=== PATIENT | female | born 1945 | race African-American/Black ===

== ENCOUNTER 2018-06-25 20:02 | Inpatient (IN) | payer MEDICARE ==
[~2018-06-25] VITALS: Ht 152.4 cm; Wt 77.1 kg
[2018-06-25] MEDS ORDERED: ALBUTEROL SULF 0.083% NEB SOLN 3 ML NEB NEB STA (20:14)
[2018-06-25] MEDS ORDERED: ASPIRIN 81 MG CHEW TAB PO ONE ×2 (20:15→23:45)
[2018-06-25] MEDS ORDERED: IPRATROPIUM BROMIDE 0.02% 2.5 ML NEB NEB ONE (20:15)
[2018-06-25] MEDS ORDERED: IPRATROPIUM BROMIDE 0.02% 2.5 ML NEB ONE (20:18)
[2018-06-25] MEDS ORDERED: ALBUTEROL SULF 0.083% NEB SOLN 3 ML NEB ONE (20:18)
[2018-06-25 20:24] LABS: BASOPHILS # (AUTO) 0.1 (0.0-0.1); BASOPHILS % 0.4 % (0.0-1.0); EOSINOPHILS # (AUTO) 0.1 (0.0-0.4); EOSINOPHILS % 0.3 % (0.0-6.0); HEMATOCRIT 34.2 % (34.2-44.1); HEMOGLOBIN 10.4 g/dL (12.0-16.0); LYMPHOCYTES # (AUTO) 0.5 (1.0-3.2); LYMPHOCYTES % 3.2 % (18.0-39.1); MEAN CORPUSCULAR HEMOGLOBIN 28.5 pg (28-32); MEAN CORPUSCULAR HGB CONC 30.4 g/dL (31-35); MEAN CORPUSCULAR VOLUME 93.7 fL (81-99); MONOCYTES # (AUTO) 1.2 (0.2-0.8); NEUTROPHILS # (AUTO) 14.8 (2.1-6.9); NEUTROPHILS % 88.1 % (38.7-80.0); PLATELET COUNT 246 x10e3/uL (140-360); RED BLOOD COUNT 3.65 x10e6/uL (3.6-5.1); RED CELL DISTRIBUTION WIDTH 12.9 % (11.7-14.4)
[2018-06-25] MEDS ORDERED: BUDESONIDE0.5 MG/2 M NEB (20:30)
[2018-06-25] MEDS ORDERED: CHLORHEXIDINE118 ML PO (20:30)
[2018-06-25] MEDS ORDERED: FENTANYL1 EAC1 TOP (20:30)
[2018-06-25] MEDS ORDERED: ENOXAPARIN40 MG/0.4 SC (20:30)
[2018-06-25] MEDS ORDERED: CLONAZEPAM0.5 MG PEG (20:30)
[2018-06-25] MEDS ORDERED: ACETAMINOPHEN325 M1 PEG (20:30)
[2018-06-25] MEDS ORDERED: DICYCLOMINE HCL20 MG PEG (20:30)
[2018-06-25] MEDS ORDERED: IBUPROFEN200 MG PEG (20:30)
[2018-06-25] MEDS: IPRATROPIUM BROMIDE 0.02% 2.5 ML NEB NEB SCH (20:30)
[2018-06-25] MEDS ORDERED: EFFER-K 10 MEQ10 MEQ PEG (20:30)
[2018-06-25] MEDS ORDERED: METHOCARBAMOL PEG (20:35)
[2018-06-25] MEDS ORDERED: PEPCID20 MG PEG (20:35)
[2018-06-25] MEDS ORDERED: LEVOTHYROXINE50 MCG PEG (20:35)
[2018-06-25] MEDS ORDERED: [UNRECOGNIZED DRUG - OTHER] OU (20:35)
[2018-06-25] MEDS ORDERED: NORCO 5-325 TA1 EACH PO (20:35)
[2018-06-25] MEDS ORDERED: ZOLOFT50 MG PEG (20:35)
[2018-06-25] MEDS ORDERED: ALBUTEROL NEB (20:36)
[2018-06-25] MEDS ORDERED: IPRATROPIUM NEB (20:36)
[2018-06-25 20:45] LABS: ALANINE AMINOTRANSFERASE 16 IU/L (0-55); ALBUMIN 3.3 g/dL (3.5-5.0); ALBUMIN/GLOBULIN RATIO 0.6 (0.8-2.0); ALKALINE PHOSPHATASE 67 IU/L (40-150); ANION GAP 15.6 mmol/L (8-16); BLOOD UREA NITROGEN 18 mg/dL (7-26); BUN/CREATININE RATIO 33 (6-25); CALCIUM 10.4 mg/dL (8.4-10.2); CARBON DIOXIDE 37 mmol/L (22-29); CHLORIDE 86 mmol/L (98-107); CREATINE KINASE 56 IU/L (29-168); CREATININE, SERUM 0.54 mg/dL (0.57-1.11); EST GLOMERULAR FILTRATION RATE > 60 ML/MIN (60-); GLUCOSE 233 mg/dL (74-118); POTASSIUM 4.6 mmol/L (3.5-5.1); SODIUM 134 mmol/L (136-145)
--- NOTE | 2018-06-25 20:45 | NUR ---
ABG OBTAINED AT BEDSIDE PER MD ORDERS, PT TOLERATED WELL
--- NOTE | 2018-06-25 20:56 | Diagnostic Imaging Report ---
EXAMINATION: CHEST SINGLE (PORTABLE) INDICATION: ^respiratory distress COMPARISON: None FINDINGS: AP view TUBES and LINES: The endotracheal tube is roughly 3 cm above the andree. LUNGS: Lungs are not well inflated. Complete opacification of bilateral lungs. PLEURA: No pleural effusion or pneumothorax. HEART AND MEDIASTINUM: The cardiomediastinal silhouette is unremarkable but partially obscured. BONES AND SOFT TISSUES: Severe deformity of the ribs and severe scoliotic changes. No acute osseous lesion. Soft tissues are unremarkable. UPPER ABDOMEN: No free air under the diaphragm. IMPRESSION: 1. Endotracheal tube roughly 3 cm above the andree. However, the andree is not well visualized. 2. Hypoinflated lungs with near complete opacification bilaterally. This likely represents severe pulmonary edema. Signed by: Dr. Josiah Singleton M.D. on 06/25/2018 8:53 PM
[2018-06-25 21:00] LABS: B-TYPE NATRIURETIC PEPTIDE2 74.2 pg/mL (0-100)
--- NOTE | 2018-06-25 21:13 | NUR ---
straight cath performed per orders. sterile technique maintained. 175cc clear yellow urine drained. specimen collected and sent to lab. glen care performed. pt noted c soft bm at this time. pt cleaned c diaper changed.
[2018-06-25 21:39] LABS: ABG HCO3 43 mmol/L (23-28); ABG PCO2 68 mmHg (41-51); ABG PO2 69 mmHg (80-105)
[2018-06-25 21:59] LABS: CLARITY,URINE CLEAR (CLEAR); COLOR,URINE YELLOW (YELLOW)
[2018-06-25 22:00] LABS: BILIRUBIN,URINE NEGATIVE (NEGATIVE); KETONES,URINE NEGATIVE (NEGATIVE); LEUKOCYTE ESTERASE ,URINE TRACE (NEGATIVE); NITRITE,URINE NEGATIVE (NEGATIVE); PROTEIN,URINE DIPSTICK NEGATIVE (NEGATIVE); URINE UROBILINOGEN 0.2 mg/dL (0.2 - 1)
[2018-06-25 22:22] LABS: BACTERIA,URINE FEW /HPF; EPITHELIAL CELLS,URINE FEW /LPF; RBC,URINE 0-5 /HPF (0-5); WBC,URINE (MAN) 0-5 /HPF (0-5)
--- NOTE | 2018-06-25 22:29 | Diagnostic Imaging Report ---
EXAM: CT Chest, Abdomen and Pelvis without contrast INDICATION: Shortness of breath. Sepsis. COMPARISON: None. TECHNIQUE: Chest, abdomen and pelvis were scanned utilizing a multidetector helical scanner from the lung apex to the pubic symphysis without administration of IV contrast coronal and sagittal reformations were obtained. Routine protocol was performed. Scan was performed when during portal venous phase. IV CONTRAST: None. ORAL CONTRAST: Water RADIATION DOSE: Total DLP: 924.14 mGy*cm Estimated effective dose: (DLP x 0.015 x size factor) mSv COMPLICATIONS: None FINDINGS: LINES and TUBES: ET tube is present, with distal tip approximately 2 cm proximal to the andree. Gastrostomy tube with distal tip within the gastric body lumen. LUNGS AND AIRWAYS: Patchy groundglass density and focal consolidation with air bronchogram in the right upper lobe. Patchy consolidation in the right middle lobe. Interstitial lung disease changes versus scarring with honeycombing in the anterior left upper lobe on image 36. Reticular nodular densities in the posterior left lower lobe. PLEURA: The pleural spaces are clear. HEART AND MEDIASTINUM: The thyroid gland is normal. Lower pretracheal lymph node measures 1.2 x 1.0 cm on image 18. The heart is normal in size.. There is no pericardial effusion. There are mild atherosclerotic calcifications in the aorta and coronary arteries. HEPATOBILIARY: No focal hepatic lesions. No biliary ductal dilation. GALLBLADDER: Multiple small calcified calculi within the gallbladder lumen. No wall thickening. SPLEEN: No splenomegaly. PANCREAS: No focal masses or ductal dilatation. ADRENALS: No adrenal nodules KIDNEYS/URETERS: Kidneys enhance symmetrically. No hydronephrosis. No cystic or solid mass lesions. No stones. GI TRACT: No abnormal distention, wall thickening, or evidence of bowel obstruction. Extensive sigmoid diverticulosis without diverticulitis. Appendix is normal. PELVIC ORGANS/BLADDER: Unremarkable. LYMPH NODES: No lymphadenopathy. VESSELS: Unremarkable. PERITONEUM / RETROPERITONEUM: No free air or fluid. BONES: Severe rotoscoliosis thoracolumbar spine associated with degenerative changes. SOFT TISSUES: Unremarkable. IMPRESSION: 1. Findings consistent with pulmonary infection/multifocal pneumonia particularly affecting the right upper lobe. 2. Cholelithiasis without cholecystitis. 3. Colonic diverticulosis without diverticulitis. 4. ET and gastrostomy tubes in adequate position. Signed by: Dr. Hallie Boone M.D. on 06/25/2018 10:26 PM
[2018-06-25] MEDS ORDERED: LEVOFLOXACIN 750MG/D5W 150ML 150 ML IV STA (22:48)
[2018-06-25] MEDS ORDERED: VANCOMYCIN 1GM/NS 250 ML 250 ML IV STA (22:48)
[2018-06-25 22:54] LABS: ABG PH 7.34 (7.31-7.41)
[2018-06-25 22:55] LABS: ABG PCO2 80 mmHg (41-51); ABG PO2 71 mmHg (80-105)
[2018-06-25 22:56] LABS: ABG HCO3 44 mmol/L (23-28)
[2018-06-25] MEDS ORDERED: CLONAZEPAM 0.5 MG TAB PEG SCH (23:45)
[2018-06-25] MEDS ORDERED: VANCOMYCIN HCL 1GM/NS 250 ML BAG IV SCH (23:45)
--- NOTE | 2018-06-25 23:55 | NUR ---
SPOKE TO POWER OF BRAND AMBASSADOR PROMOTIONAL MODEL,SIXTO TOSCANO, REGARDING CONSENT FOR PICC LINE. POA CONSENTED TO PICC LINE. CONSENT WITNESSED BY Demar RENDON RN. INFORMED THAT PT TO BE ADMITTED
[2018-06-26] VITALS (48 sets, daily range): BP systolic 89–188; BP diastolic 62–111
[2018-06-26] MEDS ORDERED: ACETAMINOPHEN 1000 MG/100 ML IV STA (00:07)
[2018-06-26] MEDS ORDERED: SODIUM CHLORIDE 0.9% 1000ML 1,000 ML IV ONE (00:15)
[2018-06-26] MEDS ORDERED: ACETAMINOPHEN 1000 MG/100 ML IV PRN (00:15)
--- NOTE | 2018-06-26 00:30 | NUR ---
pt informed that picc nurse called for picc line per orders. informed that pt spoke to emmanuel crawley for telephone consent. pt states "i don't believe you, you are making that up, you never talked to her."
--- NOTE | 2018-06-26 00:59 | NUR ---
PICC NURSE ARRIVED. LABS REVIEWED BY NURSE. TO BEDSIDE C PICC NURSE. PT INFORMED THAT PICC LINE TO BE INSERTED.
[2018-06-26] MEDS: SODIUM CHLORIDE 0.9% 1000ML 1,000 ML IV SCH ×3 (01:14→15:38)
[2018-06-26] MEDS ORDERED: FENTANYL 25 MCG/HR PATCH TOP SCH (01:30)
[2018-06-26] MEDS ORDERED: FENTANYL 50 MCG/HR PATCH TOP SCH (01:30)
[2018-06-26] MEDS: FENTANYL 25 MCG/HR PATCH TOP SCH (01:52)
--- NOTE | 2018-06-26 01:57 | Diagnostic Imaging Report ---
EXAMINATION: CHEST XRAY LINE PLACEMENT INDICATION: PICC LINE PLACEMENT VERIFICATION ^Y COMPARISON: 06/25/2018. FINDINGS: AP view. Examination somewhat limited due to severe rotoscoliosis of the thoracal lumbar spine. TUBES and LINES: Interval placement of a left PICC with distal tip projected on the left upper to mid hemithorax, likely within the proximal SVC. The endotracheal tube is unchanged in position. LUNGS: Patchy density bilaterally, particularly in the right upper lobe. PLEURA: No pleural effusion or pneumothorax. HEART AND MEDIASTINUM: The cardiomediastinal silhouette is unremarkable but partially obscured. BONES AND SOFT TISSUES: Severe rotoscoliosis of the thoracal lumbar spine. UPPER ABDOMEN: No free air under the diaphragm. IMPRESSION: Allowing for limitations, left upper extremity PICC appears located in the proximal SVC. Otherwise no significant change. Signed by: Dr. Hallie Boone M.D. on 06/26/2018 1:53 AM
[2018-06-26] MEDS: ALBUTEROL SULF 0.083% NEB SOLN 3 ML NEB NEB SCH ×6 (03:00→23:30)
--- NOTE | 2018-06-26 03:00 | NUR ---
ABG OBTAINED AT PTS BEDSIDE PER MD ORDERS
[2018-06-26 03:26] LABS: ABG PCO2 70 mmHg (41-51); ABG PH 7.37 (7.31-7.41)
[2018-06-26 03:27] LABS: ABG HCO3 42 mmol/L (23-28); ABG PO2 111 mmHg (80-105)
[2018-06-26] MEDS ORDERED: IBUPROFEN 600 MG TAB PO STA (03:40)
[2018-06-26] MEDS ORDERED: IBUPROFEN 100 MG/5 ML SUSP ONE (03:45)
[2018-06-26] MEDS ORDERED: IBUPROFEN 100 MG/5 ML SUSP PO ONE (03:45)
--- NOTE | 2018-06-26 03:45 | NUR ---
PT PLACED ON HOSPITAL BED FOR COMFORT, REPOSITIONED, TOLERATED WELL
[2018-06-26 03:59] LABS: BASOPHILS % 0.2 % (0.0-1.0); EOSINOPHILS % 0.2 % (0.0-6.0); HEMATOCRIT 27.3 % (34.2-44.1); HEMOGLOBIN 8.3 g/dL (12.0-16.0); LYMPHOCYTES # (AUTO) 0.5 (1.0-3.2); LYMPHOCYTES % 4.1 % (18.0-39.1); MEAN CORPUSCULAR HEMOGLOBIN 28.3 pg (28-32); MEAN CORPUSCULAR HGB CONC 30.4 g/dL (31-35); MEAN CORPUSCULAR VOLUME 93.2 fL (81-99); MONOCYTES # (AUTO) 1.1 (0.2-0.8); MONOCYTES % 9.3 % (4.4-11.3); NEUTROPHILS # (AUTO) 10.5 (2.1-6.9); NEUTROPHILS % 85.6 % (38.7-80.0); PLATELET COUNT 222 x10e3/uL (140-360); RED BLOOD COUNT 2.93 x10e6/uL (3.6-5.1)
--- NOTE | 2018-06-26 04:00 | NUR ---
pt states "when am i going back to my home, you said i'm was going home, you lied." pt informed that being admitted for pneumonia and receiving antibiotics. pt states that i never got antibiotics. pt reminded that received antibiotics in iv per orders.
[2018-06-26 04:29] LABS: CREATINE KINASE MB 1.3 ng/mL (0-5.0)
[2018-06-26 04:46] LABS: ANION GAP 10.2 mmol/L (8-16); BLOOD UREA NITROGEN 14 mg/dL (7-26); BUN/CREATININE RATIO 31 (6-25); CARBON DIOXIDE 38 mmol/L (22-29); CHLORIDE 90 mmol/L (98-107); CREATININE, SERUM 0.45 mg/dL (0.57-1.11); EST GLOMERULAR FILTRATION RATE > 60 ML/MIN (60-); GLUCOSE 79 mg/dL (74-118); POTASSIUM 4.2 mmol/L (3.5-5.1); SODIUM 134 mmol/L (136-145)
[2018-06-26] MEDS ORDERED: CLONAZEPAM 1 MG TAB ONE (04:55)
[2018-06-26] MEDS: CLONAZEPAM 0.5 MG TAB PEG SCH ×2 (04:57→22:05)
[2018-06-26 04:59] LABS: CALCIUM 8.6 mg/dL (8.4-10.2)
[2018-06-26] MEDS: LEVOTHYROXINE SODIUM 50 MCG TAB PEG SCH (05:07)
--- NOTE | 2018-06-26 05:30 | NUR ---
pt states "did you take the sutures out of my arm" "you said that you would take them out of my arm." charge nurse at bedside, pt reoriented to situation. pt informed that there are no sutures in arm.
[2018-06-26] MEDS: IPRATROPIUM BROMIDE 0.02% 2.5 ML NEB NEB SCH ×4 (06:45→19:10)
[2018-06-26] MEDS: BUDESONIDE 0.5MG/2 ML NEB NEB SCH ×2 (06:45→19:10)
--- NOTE | 2018-06-26 06:45 | NUR ---
pt states "please don't put that gauze in my throat, you said you were going to." pt informed that this nurse never made that statement. pt stated "don't lie." pt reoriented to situation.
--- NOTE | 2018-06-26 06:50 | NUR ---
day nurse given bedside report. pt states "don't believe anything he says, he lies. your other ladies may believe you but not this one."
--- NOTE | 2018-06-26 06:50 | NUR ---
ASSUMED CARE AT THIS TIME. PATIENT AWAKE AND ALERT, TRACH AND VENTED. RESP EVEN AND UNLABORED. SKIN WARM AND DRY. NO SIGNS OF ACUTE DISTRESS NOTED AT THIS TIME. PATIENT RAMBLING AND UNCOOPERATIVE WITH NURSING STAFF. REDIRECTED ATTENTION AND POSITIVE REASSURANCE GIVEN.
--- NOTE | 2018-06-26 07:55 | NUR ---
PATIENT REPOSITIONED TO LEFT LATERAL, POSITIONING WEDGE PLACED UNDER RIGHT HIP,TOLERATED WELL. NO SIGNS OF ACUTE DISTRESS NOTED AT THIS TIME. DENIES ANY C/O AT THIS TIME.
[2018-06-26] MEDS: LEVOFLOXACIN 750MG/D5W 150ML IV SCH (08:15)
[2018-06-26] MEDS: ENOXAPARIN SOD INJ 40 MG/0.4 ML SYR SC SCH (08:16)
[2018-06-26] MEDS: METHOCARBAMOL 500 MG TAB PEG SCH ×4 (08:31→22:05)
[2018-06-26] MEDS: FAMOTIDINE 20 MG TAB PEG SCH (08:31)
[2018-06-26] MEDS: SERTRALINE HCL 50 MG TAB PEG SCH (08:31)
--- NOTE | 2018-06-26 08:31 | NUR ---
PATIENT POSITIONED IN HIGH FOWLERS FOR PEG TUBE ORDER CHECKER, FLUSHED WITH 30ML WATER, +GASTRIC CONTENTS NOTED, MEDS GIVEN BY GRAVITY, FLUSHED WITH 30ML WATER AFTER MEDS. TOLERATED WELL. NO SIGNS OF RESP DISTRESS NOTED. EDUCATED PATIENT ON ASPIRATION PREVENTION AND POSITIONING,VERBALIZED UNDERSTANDING.
[2018-06-26] MEDS: ARTIFICIAL TEARS (OPTH) 15 ML BTL OU SCH (09:00)
[2018-06-26] MEDS ORDERED: [UNRECOGNIZED DRUG - OTHER] PEG SCH (09:00)
--- NOTE | 2018-06-26 09:21 | NUR ---
INCONTINENT CARE PROVIDED, CLEAN BREIF APPLIED, REPOSITIONED TO RIGHT LATERAL, POSITIONING WEDGE PLACED UNDER LEFT HIP, TOLERATED WELL. NO SIGNS OF ACUTE DISTRESS NOTED AT THIS TIME. DENIES ANY C/O AT THIS TIME.
--- NOTE | 2018-06-26 11:21 | NUR ---
PATIENT REFUSING BLOOD DRAW FROM PICC LINE, STATES SHE IS JEHOVAH WITNESS AND DOES NOT WANT HER BLOOD DRAWN FOR LAB TESTING FOR CARDIAC ENZYMES @ 1130. NOTIFIED LAB PATIENT REFUSING LAB DRAW.
--- NOTE | 2018-06-26 11:48 | NUR ---
DR CASANOVA AT BEDSIDE FOR PATIENT EVAL AND DISCUSSING THE CURRENT PLAN OF CARE. NOTIFIED DR CASANOVA PATIENT REFUSING BLOOD DRAWS R/T ADVENTIST/CULTURAL BELIEFS. PATIENT UNCOOPERATIVE AND ANXIOUS. EDUCATED PATIENT THAT HAS RIGHT TO REFUSE ANY TESTS/TREATMENTS AND THAT NOTHING WILL BE DONE AGAINST THE PATIENT'S WISHES, VERBALIZED UNDERSTANDING. PATIENT STATES SHE DOES NOT WANT ANY BLOOD TO BE DRWAN FOR LAB TESTING AT THIS TIME. DR CASANOVA AWARE.
--- NOTE | 2018-06-26 11:55 | NUR ---
RESPIRATORY AT BEDSIDE TO CONNECT PATIENT TO PORTABLE VENT. NO SIGNS OF ACUTE DISTRESS NOTED AT THIS TIME. TRANSPORTED TO ICU WITH HOUSE FURNISHINGS SUPERVISOR.
[2018-06-26] MEDS ORDERED: ACETAMINOPHEN 325 MG TAB PEG PRN (12:15)
[2018-06-26] MEDS ORDERED: NON-FORMULARY MEDICATION (Ibuprofen 200 MG) PEG PRN (12:15)
[2018-06-26] MEDS: HYDROCODONE/APAP 5MG-325MG TAB PEG PRN (12:54)
[2018-06-26] MEDS ORDERED: ACETAMINOPHEN 325 MG/10 ML UDC PEG PRN (13:30)
[2018-06-26] MEDS ORDERED: IBUPROFEN 100 MG/5 ML SUSP NG PRN ×2 (13:30)
[2018-06-26] MEDS: LORAZEPAM INJ 2 MG/ML VIAL IV PRN (13:33)
--- NOTE | 2018-06-26 15:03 | NUR ---
tube feed started per dietary recommendations
--- NOTE | 2018-06-26 15:22 | NUR ---
Nutrition Intervention Note RD Recommendation(s) for Physician: -Rec continuous TF of Osmolite 1.2 @55mL/hr, providing 1584kcal, 73g protein, and 1082mL H2O. -Free water flushes of 30mL q 4hr; additional per MD discretion -Obtain HbA1c -Check daily labs, weight, and GI tolerance Plan of Care: RD following, monitoring for tolerance and adequacy, TF rec Nutrition reason for involvement: RN Consult TF rec RD Assessment 06/26 Chart reviewed. 73yo F, who was admitted for PNA. Pt came from [facility] with PEG and trach. No pressor meds. Visited pt in the room. 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 Weight has been stable. Reviewed medical record from [facility], no hx of diabetes noted. Pt was not on any insulin or DM meds. Unknown hx of DM. RD rec standard formula Osmolite 1.2; notified YOLA Cuevas. HbA1c has been ordered. If BG remains high for 48hr after TF reached goal rate, rec Glucerna 1.2 at the same rate. Will continue to monitor and follow. Please consult as needed. Principal Problems/Diagnoses: PNA PMH: PEG and trach, hypothyroidisim, depression, anxiety, scoliosis, polio GI: LBM 06/26 Skin: No pressure wound noted Labs: (06/26) Na 134 L, creatinine 0.45 L Meds: NaCl, pepcid, budesonide, synthroid, fentanyl Ht: 60in Wt: 170lb BMI: 33.2kg/m2 IBW: 100lb Malnutrition Evaluation (06/26) The patient does not meet criteria for a specified degree of malnutrition at this time. Will re-evaluate at follow-up as appropriate. Nutrition Prescription (Diet Order): NPO Estimated Nutritional Needs: Calories: 1125 1575kcal(25-35kcal/kg/d) Weight used: IBW Protein: 68 113g(1.5-2.5) Weight used: IBW Diet Adequacy: Not meeting calorie needs, Not meeting protein needs Diet Education Needs Assessment: Diet education not indicated. Nutrition Care Level: mod Nutrition Diagnosis: Inadequate oral intake related to PEG and trach as evidence by pt requiring EN as main source of nutrition. Goal: Patient will meet 75-100% of estimated needs by follow up Progress: N/A Interventions: Composition, Rate, Route Monitoring/Evaluation: Total energy intake, Total protein intake, Formula/Solution, Weight change, Labs, GI tolerance Signed: Sherrie Minor MS, RD, LD
--- NOTE | 2018-06-26 15:25 | NUR ---
bed scale is broken. unable to get initial weight
[2018-06-26] MEDS: METOPROLOL TARTRATE 25 MG TAB PO SCH (17:57)
[2018-06-26] MEDS ORDERED: ALBUTEROL NEB SCH (18:00)
[2018-06-26] MEDS ORDERED: SODIUM CHLORIDE 0.9% 500ML 500 ML IV ONE (18:00)
[2018-06-26] MEDS ORDERED: IPRATROPIUM NEB SCH (18:00)
--- NOTE | 2018-06-26 18:26 | Consultation ---
DATE OF CONSULTATION: Critical Pulmonary Consultation REASON FOR CONSULT: Vent management. HISTORY OF PRESENT ILLNESS: Ms. Almendarez is a 73-year-old female known to me from [facility]. The patient is on chronic vent and has been vent dependent so far. She has severe kyphosis and scoliosis and she has a Bivona trach and has been on vent. She has previous history of pneumonia. She denies any complaints of chest pain, abdominal pain, nausea, or vomiting. She is able to talk some with the trach. REVIEW OF SYSTEMS: Unable to elicit detailed review of systems because the patient is not able to carry out full conversation because of her tracheostomy. PAST MEDICAL HISTORY: Kyphoscoliosis, history of pneumonias in the past, most part bed-bound, contracture deformities in the lower extremities as well. FAMILY AND SOCIAL HISTORY: She does not smoke, does not drink. She is currently living at [facility]. PHYSICAL EXAMINATION: VITAL SIGNS: Temperature 99.2, pulse of 96, blood pressure 110/70, and respiratory rate of 18. She is on a mechanical ventilator, FiO2 of 60%, PEEP of 5, and tidal volume is 400. HEENT: Head is atraumatic, normocephalic. She has a Bivona trach. CHEST: Clear to auscultation bilaterally. No wheezing. No crackles. HEART: S1 and S2 audible. ABDOMEN: Soft. EXTREMITIES: Deformed muscle wasting. Severe kyphoscoliosis. LABS: White count of 16,000, hemoglobin 10.4, and platelets 246. Chemistry is within normal limits. CT of the chest, abdomen, and pelvis was done in the emergency room, which is showing multifocal pneumonia in the right upper lobe. She had cholelithiasis as well, gastrostomy tube as well. ASSESSMENT: Ms. Almendarez is a 73-year-old female. She is a chronic vent-dependent patient with Bivona trach. The patient has severe kyphoscoliosis and she has been vent dependent. Weaning has been attempted few times at [facility], but was unsuccessful. Now presented with multifocal pneumonia. CURRENT PROBLEMS: 1. Ifyyx-rk-hevtrut hypoxic respiratory failure. 2. Chronic tracheostomy. 3. Gastrostomy tube status. 4. Severe kyphoscoliosis. 5. Bed-bound. 6. Severe muscle wasting. PLAN: 1. Agree with IV Levaquin and vancomycin. The patient is allergic to penicillins. 2. Lovenox subcu for DVT prophylaxis. 3. Vent setting reviewed. I reduced the tidal volume. The patient was hypercapnic with pCO2 of 68 when she came in. Now, this morning, the pCO2 was 70, however, the pH is normal. We will continue the current vent setting. Check an ABG in few hours. 4. Tube feed will be started. Detailed discussion was done with the patient. The patient told the nurse that she is Taoism and does not want blood transfusion. Critical care time spent is 45 minutes. MD IESHA Goncalves/NIMISHA /[id number]
[2018-06-26 20:06] LABS: CREATINE KINASE MB 3.4 ng/mL (0-5.0)
[2018-06-26] MEDS: VANCOMYCIN 1GM/NS 250 ML 250 ML IV SCH (22:05)
[2018-06-27] VITALS (43 sets, daily range): BP systolic 82–176; BP diastolic 53–126
[2018-06-27] MEDS: SODIUM CHLORIDE 0.9% 1000ML 1,000 ML IV SCH ×2 (02:47→07:38)
[2018-06-27] MEDS: ALBUTEROL SULF 0.083% NEB SOLN 3 ML NEB NEB SCH ×6 (03:15→22:55)
[2018-06-27] MEDS: IPRATROPIUM BROMIDE 0.02% 2.5 ML NEB NEB SCH ×4 (03:15→19:25)
[2018-06-27] MEDS: LEVOTHYROXINE SODIUM 50 MCG TAB PEG SCH (05:15)
[2018-06-27] MEDS: METHOCARBAMOL 500 MG TAB PEG SCH ×3 (05:15→22:40)
[2018-06-27] MEDS: BUDESONIDE 0.5MG/2 ML NEB NEB SCH ×2 (07:25→19:25)
[2018-06-27] MEDS: LEVOFLOXACIN 750MG/D5W 150ML IV SCH (09:25)
[2018-06-27] MEDS: POTASSIUM CHLORIDE 20MEQ/15ML UDC NG SCH (09:25)
[2018-06-27] MEDS: SERTRALINE HCL 50 MG TAB PEG SCH (09:26)
[2018-06-27] MEDS: ENOXAPARIN SOD INJ 40 MG/0.4 ML SYR SC SCH (09:26)
[2018-06-27] MEDS: CLONAZEPAM 0.5 MG TAB PEG SCH ×2 (09:26→22:40)
[2018-06-27] MEDS: FAMOTIDINE 20 MG TAB PEG SCH (09:26)
[2018-06-27] MEDS: ARTIFICIAL TEARS (OPTH) 15 ML BTL OU SCH (09:51)
[2018-06-27] MEDS: LORAZEPAM INJ 2 MG/ML VIAL IV PRN (10:20)
[2018-06-27] MEDS ORDERED: FUROSEMIDE INJ 10 MG/ML 4 ML VIAL IV NR (11:00)
[2018-06-27] MEDS: METOPROLOL TARTRATE 25 MG TAB PO SCH ×2 (11:14→17:00)
[2018-06-27] MEDS: MIDAZOLAM HCL 25 MG in SODIUM CHLORIDE 0.9% 50ML 45 ML IV PRN ×3 (11:36→22:30)
[2018-06-27] MEDS: VANCOMYCIN 1GM/NS 250 ML 250 ML IV SCH (22:40)
[2018-06-28] VITALS (24 sets, daily range): BP systolic 82–165; BP diastolic 53–104
[2018-06-28] MEDS: ALBUTEROL SULF 0.083% NEB SOLN 3 ML NEB NEB SCH ×6 (00:12→19:25)
[2018-06-28] MEDS: IPRATROPIUM BROMIDE 0.02% 2.5 ML NEB NEB SCH ×4 (02:10→19:25)
[2018-06-28] MEDS: MIDAZOLAM HCL 25 MG in SODIUM CHLORIDE 0.9% 50ML 45 ML IV PRN ×5 (04:20→23:30)
[2018-06-28] MEDS: METHOCARBAMOL 500 MG TAB PEG SCH ×3 (05:50→21:35)
[2018-06-28] MEDS: LEVOTHYROXINE SODIUM 50 MCG TAB PEG SCH (05:50)
[2018-06-28] MEDS ORDERED: LORAZEPAM 0.5 MG TAB PO PRN (08:00)
[2018-06-28] MEDS: BUDESONIDE 0.5MG/2 ML NEB NEB SCH ×2 (08:39→19:25)
[2018-06-28 08:42] LABS: % IRON SATURATION 8 % (15-50); IRON 22 ug/dL (50-170); TOTAL IRON BINDING CAPACITY 277 ug/dL (261-478); TRANSFERRIN 198 mg/dL (180-382)
[2018-06-28] MEDS: METOPROLOL TARTRATE 25 MG TAB PO SCH ×2 (09:00→17:00)
[2018-06-28] MEDS: LEVOFLOXACIN 750MG/D5W 150ML IV SCH (10:38)
[2018-06-28] MEDS: ARTIFICIAL TEARS (OPTH) 15 ML BTL OU SCH (10:39)
[2018-06-28] MEDS: CLONAZEPAM 0.5 MG TAB PEG SCH ×2 (10:39→21:35)
[2018-06-28] MEDS: FAMOTIDINE 20 MG TAB PEG SCH (10:39)
[2018-06-28] MEDS: SERTRALINE HCL 50 MG TAB PEG SCH (10:39)
[2018-06-28] MEDS: POTASSIUM CHLORIDE 20MEQ/15ML UDC NG SCH (10:39)
[2018-06-28] MEDS: ENOXAPARIN SOD INJ 40 MG/0.4 ML SYR SC SCH (10:40)
[2018-06-28] MEDS: HYDROCODONE/APAP 5MG-325MG TAB PEG PRN (15:00)
[2018-06-28] MEDS: VANCOMYCIN 1GM/NS 250 ML 250 ML IV SCH (21:35)
[2018-06-28] MEDS: DICYCLOMINE HCL 20 MG TAB PEG PRN (21:35)
[2018-06-29] VITALS (24 sets, daily range): BP systolic 81–138; BP diastolic 56–89
[2018-06-29] MEDS: IPRATROPIUM BROMIDE 0.02% 2.5 ML NEB NEB SCH ×4 (00:12→19:25)
[2018-06-29] MEDS: FENTANYL 25 MCG/HR PATCH TOP SCH (02:35)
[2018-06-29] MEDS: ALBUTEROL SULF 0.083% NEB SOLN 3 ML NEB NEB SCH ×6 (02:38→23:50)
[2018-06-29] MEDS: MIDAZOLAM HCL 25 MG in SODIUM CHLORIDE 0.9% 50ML 45 ML IV PRN ×6 (03:35→22:35)
[2018-06-29 04:57] LABS: BASOPHILS % 0.4 % (0.0-1.0); EOSINOPHILS # (AUTO) 0.2 (0.0-0.4); EOSINOPHILS % 3.1 % (0.0-6.0); HEMATOCRIT 28.5 % (34.2-44.1); HEMOGLOBIN 8.7 g/dL (12.0-16.0); LYMPHOCYTES % 13.2 % (18.0-39.1); MEAN CORPUSCULAR HEMOGLOBIN 28.3 pg (28-32); MEAN CORPUSCULAR HGB CONC 30.5 g/dL (31-35); MEAN CORPUSCULAR VOLUME 92.8 fL (81-99); MONOCYTES # (AUTO) 0.9 (0.2-0.8); MONOCYTES % 11.5 % (4.4-11.3); NEUTROPHILS # (AUTO) 5.6 (2.1-6.9); NEUTROPHILS % 70.9 % (38.7-80.0); PLATELET COUNT 209 x10e3/uL (140-360); RED BLOOD COUNT 3.07 x10e6/uL (3.6-5.1); RED CELL DISTRIBUTION WIDTH 13.3 % (11.7-14.4)
[2018-06-29 05:21] LABS: ALANINE AMINOTRANSFERASE 39 IU/L (0-55); ALBUMIN 2.4 g/dL (3.5-5.0); ALBUMIN/GLOBULIN RATIO 0.6 (0.8-2.0); ALKALINE PHOSPHATASE 52 IU/L (40-150); ANION GAP 10.8 mmol/L (8-16); BLOOD UREA NITROGEN 17 mg/dL (7-26); BUN/CREATININE RATIO 35 (6-25); CALCIUM 8.3 mg/dL (8.4-10.2); CARBON DIOXIDE 34 mmol/L (22-29); CHLORIDE 100 mmol/L (98-107); CREATININE, SERUM 0.49 mg/dL (0.57-1.11); EST GLOMERULAR FILTRATION RATE > 60 ML/MIN (60-); GLUCOSE 119 mg/dL (74-118); POTASSIUM 3.8 mmol/L (3.5-5.1); SODIUM 141 mmol/L (136-145)
[2018-06-29] MEDS: LEVOTHYROXINE SODIUM 50 MCG TAB PEG SCH (05:45)
[2018-06-29] MEDS: METHOCARBAMOL 500 MG TAB PEG SCH ×3 (05:45→21:00)
--- NOTE | 2018-06-29 06:37 | Diagnostic Imaging Report ---
EXAMINATION: CHEST SINGLE (PORTABLE) INDICATION: ^pneumonia ^[id number] ^0540 ^Y COMPARISON: 06/26/2018. FINDINGS: AP view. Examination somewhat limited due to severe rotoscoliosis of the thoracolumbar spine. TUBES and LINES: Left sided PICC with distal tip projected on the left upper to mid hemithorax, likely within the proximal SVC, again observed. The endotracheal tube is unchanged in position. LUNGS: Bilateral patchy airspace disease without significant change. PLEURA: No significant pleural effusion or pneumothorax. HEART AND MEDIASTINUM: The cardiomediastinal silhouette is unremarkable but partially obscured. BONES AND SOFT TISSUES: Severe rotoscoliosis of the thoracolumbar spine. UPPER ABDOMEN: No free air under the diaphragm. IMPRESSION: Bilateral patchy airspace disease without significant change. Signed by: Dr. Hallie Boone M.D. on 06/29/2018 6:34 AM
--- NOTE | 2018-06-29 06:41 | Diagnostic Imaging Report ---
EXAM: ABDOMEN-1VIEW (KUB), DATE: 06/29/2018 5:00 AM INDICATION: Abdominal distention. COMPARISON: None FINDINGS: Limited exam due to marked rotation. LINES/TUBES: Gastrostomy tube projected on the right mid abdomen. BOWEL PATTERN: No evidence for obstruction. Moderate volume of stool within the rectosigmoid. SOFT TISSUES: No abnormal calcifications. No mass effect. LUNG BASES: Not included BONES: Severe rotoscoliosis of the spine. IMPRESSION: Nonobstructive bowel gas pattern is limited exam. Signed by: Dr. Hallie Boone M.D. on 06/29/2018 6:36 AM
[2018-06-29] MEDS: BUDESONIDE 0.5MG/2 ML NEB NEB SCH ×2 (07:00→19:55)
[2018-06-29] MEDS: FAMOTIDINE 20 MG TAB PEG SCH (09:32)
[2018-06-29] MEDS: POTASSIUM CHLORIDE 20MEQ/15ML UDC NG SCH (09:32)
[2018-06-29] MEDS: SERTRALINE HCL 50 MG TAB PEG SCH (09:32)
[2018-06-29] MEDS: CLONAZEPAM 0.5 MG TAB PEG SCH ×2 (09:32→21:00)
[2018-06-29] MEDS: ARTIFICIAL TEARS (OPTH) 15 ML BTL OU SCH (09:32)
[2018-06-29] MEDS: LEVOFLOXACIN 750MG/D5W 150ML IV SCH (09:32)
[2018-06-29] MEDS: ENOXAPARIN SOD INJ 40 MG/0.4 ML SYR SC SCH (09:33)
[2018-06-29] MEDS: METOPROLOL TARTRATE 25 MG TAB PO SCH ×2 (09:33→17:00)
[2018-06-29] MEDS ORDERED: BISACODYL 10 MG SUPP PR ONE (17:30)
[2018-06-29] MEDS: VANCOMYCIN 1GM/NS 250 ML 250 ML IV SCH (21:05)
[2018-06-29] MEDS: DICYCLOMINE HCL 20 MG TAB PEG PRN (21:25)
[2018-06-30] VITALS (20 sets, daily range): BP systolic 83–123; BP diastolic 55–79
[2018-06-30] MEDS: MIDAZOLAM HCL 25 MG in SODIUM CHLORIDE 0.9% 50ML 45 ML IV PRN ×9 (01:54→22:51)
[2018-06-30] MEDS: IPRATROPIUM BROMIDE 0.02% 2.5 ML NEB NEB SCH ×4 (04:25→19:35)
[2018-06-30] MEDS: ALBUTEROL SULF 0.083% NEB SOLN 3 ML NEB NEB SCH ×6 (04:25→23:22)
[2018-06-30] MEDS: LEVOTHYROXINE SODIUM 50 MCG TAB PEG SCH (05:45)
[2018-06-30] MEDS: METHOCARBAMOL 500 MG TAB PEG SCH ×3 (05:45→22:55)
[2018-06-30] MEDS: BUDESONIDE 0.5MG/2 ML NEB NEB SCH ×2 (07:55→19:35)
[2018-06-30] MEDS: METOPROLOL TARTRATE 25 MG TAB PO SCH ×2 (09:00→18:43)
[2018-06-30] MEDS: ENOXAPARIN SOD INJ 40 MG/0.4 ML SYR SC SCH (09:34)
[2018-06-30] MEDS: POTASSIUM CHLORIDE 20MEQ/15ML UDC NG SCH (09:35)
[2018-06-30] MEDS: ARTIFICIAL TEARS (OPTH) 15 ML BTL OU SCH (09:35)
[2018-06-30] MEDS: CLONAZEPAM 0.5 MG TAB PEG SCH ×2 (09:35→22:51)
[2018-06-30] MEDS: FAMOTIDINE 20 MG TAB PEG SCH (09:35)
[2018-06-30] MEDS: LEVOFLOXACIN 750MG/D5W 150ML IV SCH (09:35)
[2018-06-30] MEDS: SERTRALINE HCL 50 MG TAB PEG SCH (09:36)
[2018-06-30] MEDS: DICYCLOMINE HCL 20 MG TAB PEG PRN (09:36)
[2018-06-30] MEDS: HYDROCODONE/APAP 5MG-325MG TAB PEG PRN ×2 (11:11→18:40)
--- NOTE | 2018-06-30 11:43 | NUR ---
Met with nurse and discussed pt status and order for LTAC. Called the patient's MPOA, Erma Cali. Educated her on IMM (for non hosp transfer/dc) and on LTAC order. She verbalized understanding and gave telephone consent. [facility], and [facility] as second choice. Copy left at pt bedside for MPOA, and originals placed in chart
--- NOTE | 2018-06-30 13:43 | NUR ---
patient resting comfortably at this time. pt was given pain medication earlier (after 11am). pt has large amount of anxiety and c/o pain to right knee. pain medication given with good effect.
--- NOTE | 2018-06-30 18:00 | NUR ---
psych consult called to Dr. Simon for depression/anxiety.
--- NOTE | 2018-06-30 19:37 | NUR ---
vital signs are in chart. night filler nursing report given
[2018-06-30] MEDS: VANCOMYCIN 1GM/NS 250 ML 250 ML IV SCH (23:27)
[2018-07-01] VITALS (18 sets, daily range): BP systolic 88–115; BP diastolic 55–85
[2018-07-01] MEDS: MIDAZOLAM HCL 25 MG in SODIUM CHLORIDE 0.9% 50ML 45 ML IV PRN ×6 (00:35→16:00)
[2018-07-01] MEDS: ALBUTEROL SULF 0.083% NEB SOLN 3 ML NEB NEB SCH ×4 (02:53→14:20)
[2018-07-01] MEDS: IPRATROPIUM BROMIDE 0.02% 2.5 ML NEB NEB SCH ×3 (02:53→14:20)
[2018-07-01 04:50] LABS: BASOPHILS % 0.5 % (0.0-1.0); EOSINOPHILS # (AUTO) 0.2 (0.0-0.4); HEMATOCRIT 23.6 % (34.2-44.1); HEMOGLOBIN 7.5 g/dL (12.0-16.0); LYMPHOCYTES # (AUTO) 1.2 (1.0-3.2); LYMPHOCYTES % 17.6 % (18.0-39.1); MEAN CORPUSCULAR HEMOGLOBIN 28.6 pg (28-32); MEAN CORPUSCULAR HGB CONC 31.8 g/dL (31-35); MEAN CORPUSCULAR VOLUME 90.1 fL (81-99); MONOCYTES # (AUTO) 0.5 (0.2-0.8); MONOCYTES % 7.8 % (4.4-11.3); NEUTROPHILS # (AUTO) 4.6 (2.1-6.9); NEUTROPHILS % 69.6 % (38.7-80.0); PLATELET COUNT 249 x10e3/uL (140-360); RED BLOOD COUNT 2.62 x10e6/uL (3.6-5.1); RED CELL DISTRIBUTION WIDTH 13.7 % (11.7-14.4)
[2018-07-01 05:10] LABS: ANION GAP 11.5 mmol/L (8-16); BLOOD UREA NITROGEN 15 mg/dL (7-26); BUN/CREATININE RATIO 29 (6-25); CALCIUM 8.5 mg/dL (8.4-10.2); CARBON DIOXIDE 29 mmol/L (22-29); CHLORIDE 102 mmol/L (98-107); CREATININE, SERUM 0.51 mg/dL (0.57-1.11); EST GLOMERULAR FILTRATION RATE > 60 ML/MIN (60-); GLUCOSE 115 mg/dL (74-118); POTASSIUM 3.5 mmol/L (3.5-5.1); SODIUM 139 mmol/L (136-145)
[2018-07-01] MEDS: LEVOTHYROXINE SODIUM 50 MCG TAB PEG SCH (06:39)
[2018-07-01] MEDS: METHOCARBAMOL 500 MG TAB PEG SCH ×2 (06:39→15:07)
[2018-07-01] MEDS: BUDESONIDE 0.5MG/2 ML NEB NEB SCH (07:35)
[2018-07-01] MEDS: ARTIFICIAL TEARS (OPTH) 15 ML BTL OU SCH (09:34)
[2018-07-01] MEDS: POTASSIUM CHLORIDE 20MEQ/15ML UDC NG SCH (09:40)
[2018-07-01] MEDS: LEVOFLOXACIN 750MG/D5W 150ML IV SCH (09:40)
[2018-07-01] MEDS: ENOXAPARIN SOD INJ 40 MG/0.4 ML SYR SC SCH (09:40)
[2018-07-01] MEDS: SERTRALINE HCL 50 MG TAB PEG SCH (09:40)
[2018-07-01] MEDS: CLONAZEPAM 0.5 MG TAB PEG SCH (09:40)
[2018-07-01] MEDS: FAMOTIDINE 20 MG TAB PEG SCH (09:40)
[2018-07-01] MEDS: METOPROLOL TARTRATE 25 MG TAB PO SCH (09:41)
--- NOTE | 2018-07-01 12:46 | NUR ---
BRETT SPOKE WITH JOE TOSCANO AT [phone] EXPLAINED THAT PT HAS TRANSFER ORDERS TO [facility] AND WILL BE TRANSFERED TODAY TELEPHONE CONSENTS FOR MOT FARHEEN'Karlos BAR AWARE OF TRANSFER ORDERS AWAIT BED ASSIGNMENT MOT PUT IN PACKET AT NURSES STATION
--- NOTE | 2018-07-01 12:55 | NUR ---
CALL FROM YOSVANY AT [facility] PT ACCEPTED TO ICU 10 GAVE NURSE LALITA NUMBER TO CALL REPORT ASKED LALITA TO NOTIFY JOE HENSON WHEN AMBULANCE IS HERE TO PICK PT UP CM NOTIFIED SIXTO OF ROOM NUMBER
--- NOTE | 2018-07-01 14:24 | NUR ---
nursing report called/given to Nicol ACEVES at [facility] for icu bed 10. vss.
--- NOTE | 2018-07-01 16:28 | NUR ---
Patient discharged from [facility] ICU room 195 via ambulance/stretcher with her belongings. pt tolerated the transfer to stretcher well. vss. MOT given to ems staff by hide house supervisor. patient in no distress upon discharge.
--- NOTE | 2018-07-01 20:08 | Consultation ---
DATE OF CONSULTATION: 07/01/2018 Psychiatric Consultation REASON FOR CONSULTATION: To evaluate the patient's mood. HISTORY OF PRESENT ILLNESS: The patient is a 73-year-old female admitted to the hospital for multiple pneumonia and hypercarbia. As per medical record, the patient has history of multiple pneumonia, she is vent dependent, polio scoliosis, anxiety, depression, hypothyroid, on PEG. Upon evaluation today, the patient is currently lying on the bed. She is on ventilator. She is calm. The patient is unable to answer question at this time. As per nursing staff, the patient has been tearful and anxious. She is not combative or agitated. She is sleeping fair. She is on PEG. PAST PSYCHIATRIC HISTORY: The patient has history of anxiety and depression. Unable to obtain if she attempted suicide in the past. FAMILY HISTORY: Unknown. SOCIAL HISTORY: The patient was living at home independently on oxygen as per the nursing staff. CURRENT MEDICATIONS: 1. Metoprolol. 2. Potassium chloride. 3. Klonopin 0.5 mg p.o. q.12 hours. 4. Famotidine. 5. Enoxaparin. 6. Levofloxacin. 7. Budesonide. 8. Ipratropium bromide. 9. Albuterol. 10. Robaxin. 11. Synthroid. 12. Midazolam. 13. Vancomycin. 14. [place] p.r.n. 15. Ativan 0.5 mg p.o. three times a day as needed. 16. Ibuprofen. 17. Dicyclomine. 18. Fentanyl. 19. Tylenol. 20. Zoloft 50 mg p.o. daily. LABORATORY DATA: Current labs: WBC 6.64, RBC 2.62, hemoglobin 7.5, hematocrit 23.6, platelets 249. Sodium 139, potassium 3.5, chloride 102, CO2 is 29, BUN 15, creatinine is 0.51. ASSESSMENT: Adjustment disorder with mixed mood with depression and anxiety. PLAN: 1. Continue Klonopin 0.5 mg p.o. q.12 hours. We will refrain from increasing medication at this time due to low blood pressure. 2. Continue Ativan 0.5 mg p.o. three times a day as needed, hold for sedation or systolic blood pressure less than 90. 3. Increase Zoloft from 50 mg p.o. daily to 75 mg p.o. daily. 4. Monitor for mood. 5. As per nursing staff, the patient will be transferred to [facility] today. Dictated by Karen Ley PA-C Andreina Gonzalez MD QTV/MODL /[id number]
[2018-07-02] MEDS ORDERED: SERTRALINE HCL 50 MG TAB PEG SCH (09:00)
[2018-07-21 12:17] LABS: ABG PH 7.21 (7.31-7.41)
[2018-07-21 12:19] LABS: ABG HCO3 35 mmol/L (23-28); ABG PCO2 88 mmHg (41-51); ABG PO2 86 mmHg (80-105)
== END 2018-07-01 16:15 | DRG 207 ==
LOC: ER 06-26 01:52 → ERHOLD 06-26 01:55 → ICU 06-26 12:02
PROC: 5A1955Z Respiratory Ventilation, Greater than 96 Consecutive Hours (ICD-10-PCS; principal; 2018-06-26)
DX: J15.6 Pneumonia due to other Gram-negative bacteria (principal); J96.21 Acute and chronic respiratory failure with hypoxia; R53.2 Functional quadriplegia; J96.02 Acute respiratory failure with hypercapnia; Z99.11 Dependence on respirator [ventilator] status; E44.1 Mild protein-calorie malnutrition; M41.9 Scoliosis, unspecified; Z93.0 Tracheostomy status; Z93.1 Gastrostomy status; Z74.01 Bed confinement status; M62.50 Muscle wasting and atrophy, not elsewhere classified, unspecified site; Z79.899 Other long term (current) drug therapy; Z68.33 Body mass index [BMI] 33.0-33.9, adult
CPT/HCPCS: 36415; 36569; 36600; 71045; 71250; 74018; 74176; 80048; 80053; 80202; 81001; 82550; 82553; 82607; 82746; 82805; 83036; 83090; 83540; 83605; 83880; 84466; 84484; 85025; 87040; 87070; 87205; 93005; 94002; 94003; 94640; 97139; 99285; J1650; J1940; J2060; J2250; J3370; J7030